=== PATIENT | female | born 1990 | race African-American/Black ===

== ENCOUNTER 2020-05-20 04:03 | Inpatient (IN) | payer MEDICAID, OTHER ==
[2020-05-20] MEDS ORDERED: Methylergonovine 0.2 MG/1 ML Amp IM PRN (05:52)
[2020-05-20] MEDS ORDERED: Misoprostol 200 MCG Tab PO PRN (05:52)
[2020-05-20] MEDS ORDERED: Tranexamic Acid 1,000 MG in Sodium Chloride 0.9% 100 ML IV PRN (05:52)
[2020-05-20] MEDS ORDERED: Water For Irrigation,Sterile 1,000 ML Container IRR PRN (05:52)
[2020-05-20] MEDS ORDERED: Nalbuphine 10 MG/1 ML Vial IVPUSH PRN (05:52)
[2020-05-20] MEDS ORDERED: Carboprost Tromethamine 250 MCG/1 ML Amp IM PRN (05:52)
[2020-05-20] MEDS ORDERED: Butorphanol 1 MG/ML SDV IVPUSH PRN (05:52)
[2020-05-20] MEDS ORDERED: Sodium Chloride 0.9% 10 ML SDV IV PRN (05:52)
[2020-05-20] MEDS ORDERED: Lidocaine 1% 50 ML MDV INJECT PRN (05:52)
[2020-05-20] MEDS ORDERED: Sodium Chloride 0.9% 10 ML Syringe FLUSH PRN (05:52)
[2020-05-20] MEDS ORDERED: Sodium Chloride 0.9% 2.5 ML Syringe FLUSH PRN (05:52)
[2020-05-20] MEDS ORDERED: Oxytocin/0.9 % Sodium Chloride 30 UNIT/500 ML BAG IV SCH ×2 (06:00→13:30)
--- NOTE | 2020-05-20 11:44 | PCM.LDHP ---
L&D History of Present Illness - General Date of Service: 05/20/20 Admit Problem/Dx: Patient Status Order with Admit Dx/Problem 05/20/20 04:44 Patient Status [ADT] Routine 05/20/20 05:55 Patient Status [ADT] Routine Admission Diagnosis/Problem Admission Diagnosis/Problem 40 weeks gestation of Source of Information: Patient History Limitations: Reports: No Limitations - History of Present Illness Improves with: Reports: None Worsens with: Reports: None Associated Symptoms: Reports: N - Related Data Allergies/Adverse Reactions: Allergies Allergy/AdvReac Type Severity Reaction Status Date / Time No Known Allergies Allergy Verified 05/20/20 07:42 Past Medical History HEENT History: Reports: None Cardiovascular History: Reports: None Respiratory History: Reports: None Gastrointestinal History: Reports: GERD Genitourinary History: Reports: None [employer]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 Musculoskeletal History: Reports: None Neurological History: Reports: None Psychiatric History: Reports: None Endocrine/Metabolic History: Reports: None Hematologic History: Reports: None Immunologic History: Reports: None Oncologic (Cancer) History: Reports: None - Past Surgical History Head Surgeries/Procedures: Reports: None HEENT Surgical History: Reports: None Cardiovascular Surgical History: Reports: None Respiratory Surgical History: Reports: None GI Surgical History: Reports: None Endocrine Surgical History: Reports: None Neurological Surgical History: Reports: None Musculoskeletal Surgical History: Reports: None Dermatological Surgical History: Reports: None Social & Family History - Family History Family Medical History: Noncontributory - Tobacco Use Smoking Status *Q: Never Smoker Second Hand Smoke Exposure: No - Recreational Drug Use Recreational Drug Use: No H&P Review of Systems - Review of Systems: Review Of Systems: See Below General: Reports: No Symptoms HEENT: Reports: No Symptoms Pulmonary: Reports: No Symptoms Cardiovascular: Reports: No Symptoms Gastrointestinal: Reports: No Symptoms Genitourinary: Reports: No Symptoms Musculoskeletal: Reports: No Symptoms Skin: Reports: No Symptoms Psychiatric: Reports: No Symptoms Neurological: Reports: No Symptoms Hematologic/Lymphatic: Reports: No Symptoms Immunologic: Reports: No Symptoms L&D Exam - Exam Exam: See Below - Vital Signs Weight: 78.018 kg - OB Specific Contraction Intensity: Mild to Moderate - Hurt Score Hurt Score Cervix Position: Midposition Hurt Score Consistency: Soft Hurt Score Effacement: >80% Hurt Score Dilation: 1-2 cm - Exam General: Alert, Oriented HEENT: PERRLA, Conjunctiva Clear, EACs Clear, EOMI, Hearing Intact, Mucosa Moist & [place], Nares Patent, Normal Nasal Septum, Posterior Pharynx Clear, TMs Clear Neck: Supple, Trachea Midline Lungs: Clear to Auscultation, Normal Respiratory Effort Cardiovascular: Regular Rate, Regular Rhythm GI/Abdominal Exam: Normal Bowel Sounds, Soft, Non-Tender, No Organomegaly, No Distention, No Abnormal Bruit, No Mass, Pelvis Stable Rectal Exam: Normal Exam, Normal Rectal Tone Genitourinary: Normal external exam, Normal bimanual exam, Normal speculum exam Back Exam: Normal Inspection, Full Range of Motion Extremities: Normal Inspection, Normal Range of Motion, Non-Tender, No Pedal Edema, Normal Capillary Refill Skin: Warm, Dry, Intact Neurological: Cranial Nerves Intact, Reflexes Equal Bilateral Psychiatric: Alert, Normal Affect, Normal Mood - Patient Data Lab Results Last 24 hrs: Laboratory Results - last 24 hr 05/20/20 05/20/20 05/20/20 Range/Units 04:23 04:30 06:40 WBC 9.36 (4.0-11.0) K/uL RBC 3.92 L (4.30-5.90) M/uL Hgb 12.9 (12.0-16.0) g/dL Hct 38.7 (36.0-46.0) % MCV 98.7 H (80.0-98.0) fL MCH 32.9 H (27.0-32.0) pg MCHC 33.3 (31.0-37.0) g/dL RDW Std Deviation 48.3 (28.0-62.0) fl RDW Coeff of Nile 14 (11.0-15.0) % Plt Count 169 (150-400) K/uL MPV 10.80 (7.40-12.00) fL Nucleated RBC % 0.0 /100WBC Nucleated RBCs # 0 K/uL Membrane Rupture POSITIVE SARS-CoV-2 RNA (MARIA C) NEGATIVE (NEGATIVE) Blood Type Antibody Screen 05/20/20 Range/Units 06:40 WBC (4.0-11.0) K/uL RBC (4.30-5.90) M/uL Hgb (12.0-16.0) g/dL Hct (36.0-46.0) % MCV (80.0-98.0) fL MCH (27.0-32.0) pg MCHC (31.0-37.0) g/dL RDW Std Deviation (28.0-62.0) fl RDW Coeff of Nile (11.0-15.0) % Plt Count (150-400) K/uL MPV (7.40-12.00) fL Nucleated RBC % /100WBC Nucleated RBCs # K/uL Membrane Rupture SARS-CoV-2 RNA (MARIA C) (NEGATIVE) Blood Type O POSITIVE Antibody Screen NEGATIVE Result Diagrams: 05/20/20 06:40 Problem List Initiated/Reviewed/Updated: Yes Orders Last 24hrs: Active Orders 24 hr Category Date Time Status Patient Status [ADT] Routine ADT 05/20/20 04:44 Active Patient Status [ADT] Routine ADT 05/20/20 05:55 Active Heart Tones [RC] CONTINUOUS Care 05/20/20 05:55 Active Non Stress Test [RC] PER UNIT ROUTINE Care 05/20/20 04:44 Active Non Stress Test [RC] PER UNIT ROUTINE Care 05/20/20 05:55 Active May Shower [RC] ASDIRECTED Care 05/20/20 05:55 Active Notify Provider [RC] PRN Care 05/20/20 05:55 Active Up ad Mary [RC] ASDIRECTED Care 05/20/20 04:44 Active Up ad Mary [RC] ASDIRECTED Care 05/20/20 05:55 Active Vaginal Exam [RC] Click to Edit Care 05/20/20 04:44 Active Vaginal Exam [RC] PRN Care 05/20/20 05:55 Active Vital Signs [RC] PER UNIT ROUTINE Care 05/20/20 04:44 Active Vital Signs [RC] PER UNIT ROUTINE Care 05/20/20 05:55 Active RPR (SYPHILIS SERO) W/ RFLX [REF] Routine Lab 05/20/20 06:40 Received Butorphanol [Stadol] Med 05/20/20 05:52 Active 1 mg IVPUSH Q1H PRN Carboprost Tromethamine [Hemabate DS] Med 05/20/20 05:52 Active 250 mcg IM ASDIRECTED PRN Lactated Ringers [Ringers, Lactated] 1,000 ml Med 05/20/20 06:00 Active IV ASDIRECTED Lidocaine 1% [Xylocaine 1%] Med 05/20/20 05:52 Active 50 ml INJECT ONETIME PRN Methylergonovine [Methergine] Med 05/20/20 05:52 Active 0.2 mg IM ASDIRECTED PRN Nalbuphine [Nubain] Med 05/20/20 05:52 Active 10 mg IVPUSH Q1H PRN Oxytocin/0.9 % Sodium Chloride [Oxytocin 30 Unit/500 ML Med 05/20/20 06:00 Active -NS] 30 unit in 500 ml IV TITRATE Sodium Chloride 0.9% [Normal Saline] Med 05/20/20 05:52 Active 10 ml IV ASDIRECTED PRN Sodium Chloride 0.9% [Saline Flush] Med 05/20/20 05:52 Active 10 ml FLUSH ASDIRECTED PRN Sodium Chloride 0.9% [Saline Flush] Med 05/20/20 05:52 Active 2.5 ml FLUSH ASDIRECTED PRN Tranexamic Acid [Cyklokapron] 1,000 mg Med 05/20/20 05:52 Active Sodium Chloride 0.9% [Normal Saline] 100 ml IV ONETIME Water For Irrigation,Sterile [Sterile Water for Med 05/20/20 05:52 Active Irrigation] 1,000 ml IRR ASDIRECTED PRN miSOPROStoL [Cytotec] Med 05/20/20 05:52 Active 200 mcg PO ONETIME PRN Scalp Electrode [WOMSER] Per Unit Routine Oth 05/20/20 05:55 Ordered Peripheral IV Insertion Adult [OM.PC] Routine Oth 05/20/20 05:55 Ordered Resuscitation Status Routine Resus Stat 05/20/20 04:44 Ordered Medication Orders Butorphanol Tartrate (Stadol) 1 mg IVPUSH Q1H PRN PRN Reason: Pain Carboprost Tromethamine (Hemabate Ds) 250 mcg IM ASDIRECTED PRN PRN Reason: Post Hemorrhage Lactated Ringer's (Ringers, Lactated) 1,000 mls @ 150 mls/hr IV ASDIRECTED SAQIB Oxytocin/Sodium Chloride (Oxytocin 30 Unit/500 Ml-Ns) 30 unit in 500 mls @ 999 mls/hr IV TITRATE SAQIB Tranexamic Acid 1,000 mg/ (Sodium Chloride) 110 mls @ 660 mls/hr IV ONETIME PRN PRN Reason: Bleeding Lidocaine HCl (Xylocaine 1%) 50 ml INJECT ONETIME PRN PRN Reason: Laceration repair Methylergonovine Maleate (Methergine) 0.2 mg IM ASDIRECTED PRN PRN Reason: Post Hemorrhage Misoprostol (Cytotec) 200 mcg PO ONETIME PRN PRN Reason: Post Hemorrhage Nalbuphine HCl (Nubain) 10 mg IVPUSH Q1H PRN PRN Reason: Pain (severe 7-10) Sodium Chloride (Saline Flush) 10 ml FLUSH ASDIRECTED PRN PRN Reason: Keep Vein Open Sodium Chloride (Saline Flush) 2.5 ml FLUSH ASDIRECTED PRN PRN Reason: Keep Vein Open Sodium Chloride (Normal Saline) 10 ml IV ASDIRECTED PRN PRN Reason: IV Use Sterile Water (Sterile Water For Irrigation) 1,000 ml IRR ASDIRECTED PRN PRN Reason: delivery Assessment/Plan Comment:: IUP 40+2. P0000. wiyh SROM. will start pitocin as needed. Pt may have Epidural when it is appropriate.
[2020-05-20] MEDS ORDERED: Terbutaline 1 MG/ML SDV SUBCUT PRN (13:25)
[2020-05-20] MEDS: Lactated Ringers 1,000 ML IV SCH (13:27)
[2020-05-20] MEDS ORDERED: fentaNYL 100 MCG/2 ML SDV ONE (17:25)
[2020-05-20] MEDS ORDERED: Ropivacaine HCl/PF 100 ML ONE (17:25)
--- NOTE | 2020-05-20 17:49 | PCM.PREANE ---
Preanesthetic Assessment - Anesthesia/Transfusion/Family Hx Anesthesia History: No Prior Anesthesia Family History of Anesthesia Reaction: No - Physical Assessment NPO Status Date: 05/20/20 NPO Status Time: 11:00 Height: 1.7 m Weight: 78.018 kg ASA Class: 2 - Lab Values: Laboratory Last Values WBC 9.36 K/uL (4.0-11.0) 05/20/20 06:40 RBC 3.92 M/uL (4.30-5.90) L 05/20/20 06:40 Hgb 12.9 g/dL (12.0-16.0) 05/20/20 06:40 Hct 38.7 % (36.0-46.0) 05/20/20 06:40 MCV 98.7 fL (80.0-98.0) H 05/20/20 06:40 MCH 32.9 pg (27.0-32.0) H 05/20/20 06:40 MCHC 33.3 g/dL (31.0-37.0) 05/20/20 06:40 RDW Std Deviation 48.3 fl (28.0-62.0) 05/20/20 06:40 RDW Coeff of Nile 14 % (11.0-15.0) 05/20/20 06:40 Plt Count 169 K/uL (150-400) 05/20/20 06:40 MPV 10.80 fL (7.40-12.00) 05/20/20 06:40 Nucleated RBC % 0.0 /100WBC 05/20/20 06:40 Nucleated RBCs # 0 K/uL 05/20/20 06:40 Membrane Rupture POSITIVE 05/20/20 04:23 SARS-CoV-2 RNA (MARIA C) NEGATIVE (NEGATIVE) 05/20/20 04:30 Blood Type O POSITIVE 05/20/20 06:40 Antibody Screen NEGATIVE 05/20/20 06:40 - Allergies Allergies/Adverse Reactions: Allergies Allergy/AdvReac Type Severity Reaction Status Date / Time No Known Allergies Allergy Verified 05/20/20 07:42 - Acknowledgements Anesthesia Type Planned: Epidural Pt an Appropriate Candidate for the Planned Anesthesia: Yes Alternatives and Risks of Anesthesia Discussed w Pt/Guardian: Yes Pt/Guardian Understands and Agrees with Anesthesia Plan: Yes PreAnesthesia Questionnaire HEENT History: Reports: None Cardiovascular History: Reports: None Respiratory History: Reports: None Gastrointestinal History: Reports: GERD Genitourinary History: Reports: None 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 Musculoskeletal History: Reports: None Neurological History: Reports: None Psychiatric History: Reports: None Endocrine/Metabolic History: Reports: None Hematologic History: Reports: None Immunologic History: Reports: None Oncologic (Cancer) History: Reports: None - Past Surgical History Head Surgeries/Procedures: Reports: None HEENT Surgical History: Reports: None Cardiovascular Surgical History: Reports: None Respiratory Surgical History: Reports: None GI Surgical History: Reports: None Endocrine Surgical History: Reports: None Neurological Surgical History: Reports: None Musculoskeletal Surgical History: Reports: None Dermatological Surgical History: Reports: None - SUBSTANCE USE Smoking Status *Q: Never Smoker Tobacco Use Within Last Twelve Months: No Second Hand Smoke Exposure: No Recreational Drug Use History: No - CURRENT (IN HOUSE) MEDS Current Meds: Current Medications Butorphanol Tartrate (Stadol) 1 mg IVPUSH Q1H PRN PRN Reason: Pain Last Admin: 05/20/20 14:18 Dose: 1 mg Documented by: Carboprost Tromethamine (Hemabate Ds) 250 mcg IM ASDIRECTED PRN PRN Reason: Post Hemorrhage Lactated Ringer's (Ringers, Lactated) 1,000 mls @ 150 mls/hr IV ASDIRECTED SAQIB Last Admin: 05/20/20 13:27 Dose: 150 mls/hr Documented by: Oxytocin/Sodium Chloride (Oxytocin 30 Unit/500 Ml-Ns) 30 unit in 500 mls @ 999 mls/hr IV TITRATE SAQIB Tranexamic Acid 1,000 mg/ (Sodium Chloride) 110 mls @ 660 mls/hr IV ONETIME PRN PRN Reason: Bleeding Oxytocin/Sodium Chloride (Oxytocin 30 Unit/500 Ml-Ns) 30 unit in 500 mls @ 2 mls/hr IV TITRATE SAQIB; Protocol Last Titration: 05/20/20 14:19 Dose: 4 munits/min, 4 mls/hr Documented by: Lidocaine HCl (Xylocaine 1%) 50 ml INJECT ONETIME PRN PRN Reason: Laceration repair Methylergonovine Maleate (Methergine) 0.2 mg IM ASDIRECTED PRN PRN Reason: Post Hemorrhage Misoprostol (Cytotec) 200 mcg PO ONETIME PRN PRN Reason: Post Hemorrhage Nalbuphine HCl (Nubain) 10 mg IVPUSH Q1H PRN PRN Reason: Pain (severe 7-10) Sodium Chloride (Saline Flush) 10 ml FLUSH ASDIRECTED PRN PRN Reason: Keep Vein Open Sodium Chloride (Saline Flush) 2.5 ml FLUSH ASDIRECTED PRN PRN Reason: Keep Vein Open Sodium Chloride (Normal Saline) 10 ml IV ASDIRECTED PRN PRN Reason: IV Use Sterile Water (Sterile Water For Irrigation) 1,000 ml IRR ASDIRECTED PRN PRN Reason: delivery Terbutaline Sulfate (Brethine) 0.25 mg SUBCUT ASDIRECTED PRN PRN Reason: Tacysystole Discontinued Medications Fentanyl (Sublimaze) Confirm Administered Dose 100 mcg .ROUTE .STK-MED ONE Stop: 05/20/20 17:26 Ropivacaine (Naropin 0.2%) Confirm Administered Dose 100 mls @ as directed .ROUTE .STK-MED ONE Stop: 05/20/20 17:26
--- NOTE | 2020-05-20 17:53 | PCM.PRNOTE ---
- Free Text/Narrative Note: Anes NOte Pateint requests epidural for L&D. Level L3-L4 midline appraoch. Sitting position. Chloraprep scrub to lumbar area. Sterile fenestrated drape applied. Epidural space easily achieved single attempt with ease using FUNMILAYO technique. FUNMILAYO at 3 cm. Cath threaded 5 cm with ease. Cath secured at skin at 9 cm using sterile clear adhesve dressing. [id number] 3 cc 1.5% lido with epi negative. 1738 LOad 10 cc 0.2 % ropivicaine with 1 mcg cc fentanyl in slow divded doses. Pump started with 90 c same solution. Rate is 8 cc hr with 6 cc q 20 min prn bolus. Deepak well. Time with patient [id number] Trav Ruffin CRNA
[2020-05-21] MEDS: Ondansetron 4 MG/2 ML SDV IVPUSH PRN ×2 (01:35→12:09)
[2020-05-21] MEDS: Lactated Ringers 1,000 ML IV SCH ×3 (01:36→12:09)
[2020-05-21] MEDS ORDERED: fentaNYL 100 MCG/2 ML SDV ONE (03:15)
[2020-05-21] MEDS ORDERED: Ropivacaine HCl/PF 100 ML ONE (03:15)
--- NOTE | 2020-05-21 03:32 | PCM.PRNOTE ---
- Free Text/Narrative Note: Anes Note Epidural infusion is complete. A new 100 cc bag of 0.2% ropivicaine with 1 mcg cc fentanyl added was placed. A 5 cc bolus was ad ministered, and then infusion was restarted. Rate is 8 cc hr with 6 cc q 20 min prn bolus. Patient reports excellent analgesia. Time with patient [id number] Trav Ruffin CRNA
[2020-05-21] MEDS ORDERED: ceFAZolin 2 GM in Premix Bag 1 BAG IV ONE (04:07)
[2020-05-21] MEDS ORDERED: Acetaminophen 500 MG Tab PO PRN ×2 (04:08→14:28)
[2020-05-21] MEDS ORDERED: Bupivicaine/fentaNYL/NS 250 ML ONE (09:35)
[2020-05-21] MEDS: ceFAZolin 1 GM in Premix Bag 1 BAG IV SCH ×2 (12:12→20:24)
[2020-05-21] MEDS ORDERED: Lanolin 100% Cream 7 GM Tube TOP PRN (14:28)
[2020-05-21] MEDS ORDERED: Benzocaine/Menthol 20%-0.5% Spray 78 GM Cannister TOP PRN (14:28)
[2020-05-21] MEDS ORDERED: oxyCODONE 5 MG Tab PO PRN (14:28)
[2020-05-21] MEDS ORDERED: Ibuprofen 400 MG Tab PO PRN (14:28)
[2020-05-21] MEDS ORDERED: Witch Hazel Medicated Pads 40/Jar TOP PRN (14:28)
[2020-05-21] MEDS ORDERED: Bisacodyl 10 MG Supp RECTAL PRN (14:28)
[2020-05-21] MEDS: Ibuprofen 800 MG Tab PO PRN (18:19)
[2020-05-21] MEDS: Acetaminophen 500 MG Tab PO PRN (18:21)
[2020-05-22] MEDS: Ibuprofen 800 MG Tab PO PRN ×3 (01:25→19:36)
[2020-05-22] MEDS: Acetaminophen 500 MG Tab PO PRN ×2 (01:26→16:02)
--- NOTE | 2020-05-22 06:56 | PCM48HPAN ---
Post Anesthesia Note - EVALUATION WITHIN 48HRS OF ANESTHETIC Vital Signs in Normal Range: Yes Patient Participated in Evaluation: Yes Respiratory Function Stable: Yes Airway Patent: Yes Cardiovascular Function Stable: Yes Hydration Status Stable: Yes Pain Control Satisfactory: Yes Nausea and Vomiting Control Satisfactory: Yes Mental Status Recovered: Yes Vital Signs: Last Vital Signs Temp 36.1 C 05/22/20 05:19 Pulse 69 05/22/20 05:19 Resp 16 05/22/20 05:19 BP 119/69 05/22/20 05:19 Pulse Ox 98 05/22/20 05:19
[2020-05-22] MEDS: Docusate Sodium 100 MG Cap PO PRN ×2 (08:03→19:36)
--- NOTE | 2020-05-22 09:29 | PCM.PNPP ---
- General Info Date of Service: 05/22/20 Functional Status: Reports: Pain Controlled - Review of Systems General: Reports: No Symptoms HEENT: Reports: No Symptoms Pulmonary: Reports: No Symptoms Cardiovascular: Reports: No Symptoms Gastrointestinal: Reports: No Symptoms Genitourinary: Reports: No Symptoms Musculoskeletal: Reports: No Symptoms Skin: Reports: No Symptoms Neurological: Reports: No Symptoms Psychiatric: Reports: No Symptoms - General Info Date of Service: 05/22/20 - Patient Data Vital Signs - Most Recent: Last Vital Signs Temp 36.4 C 05/22/20 07:50 Pulse 86 05/22/20 07:50 Resp 16 05/22/20 07:50 BP 119/78 05/22/20 07:50 Pulse Ox 99 05/22/20 07:50 Weight - Most Recent: 78.925 kg Lab Results - Last 24 Hours: Laboratory Results - last 24 hr 05/22/20 Range/Units 05:55 Hgb 10.4 L (12.0-16.0) g/dL Hct 31.4 L (36.0-46.0) % Med Orders - Current: Current Medications Acetaminophen (Tylenol Extra Strength) 500 mg PO Q4H PRN PRN Reason: Pain Acetaminophen (Tylenol Extra Strength) 1,000 mg PO Q4H PRN PRN Reason: Pain Last Admin: 05/22/20 01:26 Dose: 1,000 mg Documented by: Benzocaine/Menthol (Dermoplast Pain Relief 20%-0.5% Palms) 0 gm TOP ASDIRECTED PRN PRN Reason: Perineal Comfort Measure Last Admin: 05/21/20 17:12 Dose: 1 can Documented by: Bisacodyl (Dulcolax) 10 mg RECTAL ONETIME PRN PRN Reason: Constipation Butorphanol Tartrate (Stadol) 1 mg IVPUSH Q1H PRN PRN Reason: Pain Last Admin: 05/20/20 14:18 Dose: 1 mg Documented by: Carboprost Tromethamine (Hemabate Ds) 250 mcg IM ASDIRECTED PRN PRN Reason: Post Hemorrhage Docusate Sodium (Colace) 100 mg PO BID PRN PRN Reason: Constipation Last Admin: 05/22/20 08:03 Dose: 100 mg Documented by: Emollient Ointment (Lansinoh Hpa) 0 gm TOP ASDIRECTED PRN PRN Reason: Sore Nipples Lactated Ringer's (Ringers, Lactated) 1,000 mls @ 150 mls/hr IV ASDIRECTED SAQIB Last Admin: 05/21/20 12:09 Dose: 150 mls/hr Documented by: Oxytocin/Sodium Chloride (Oxytocin 30 Unit/500 Ml-Ns) 30 unit in 500 mls @ 999 mls/hr IV TITRATE SAQIB Last Admin: 05/21/20 14:17 Dose: 999 mls/hr Documented by: Tranexamic Acid 1,000 mg/ (Sodium Chloride) 110 mls @ 660 mls/hr IV ONETIME PRN PRN Reason: Bleeding Oxytocin/Sodium Chloride (Oxytocin 30 Unit/500 Ml-Ns) 30 unit in 500 mls @ 2 mls/hr IV TITRATE [facility]; Protocol Last Titration: 05/21/20 02:46 Dose: 18 munits/min, 18 mls/hr Documented by: Ibuprofen (Motrin) 400 mg PO Q4H PRN PRN Reason: Pain Ibuprofen (Motrin) 800 mg PO Q6H PRN PRN Reason: Pain Last Admin: 05/22/20 08:03 Dose: 800 mg Documented by: Lidocaine HCl (Xylocaine 1%) 50 ml INJECT ONETIME PRN PRN Reason: Laceration repair Methylergonovine Maleate (Methergine) 0.2 mg IM ASDIRECTED PRN PRN Reason: Post Hemorrhage Misoprostol (Cytotec) 200 mcg PO ONETIME PRN PRN Reason: Post Hemorrhage Nalbuphine HCl (Nubain) 10 mg IVPUSH Q1H PRN PRN Reason: Pain (severe 7-10) Ondansetron HCl (Zofran) 4 mg IVPUSH Q6H PRN PRN Reason: Nausea/Vomiting Last Admin: 05/21/20 12:09 Dose: 4 mg Documented by: Oxycodone HCl (Oxycodone) 5 mg PO Q2H PRN PRN Reason: Pain Sodium Chloride (Saline Flush) 10 ml FLUSH ASDIRECTED PRN PRN Reason: Keep Vein Open Sodium Chloride (Saline Flush) 2.5 ml FLUSH ASDIRECTED PRN PRN Reason: Keep Vein Open Sodium Chloride (Normal Saline) 10 ml IV ASDIRECTED PRN PRN Reason: IV Use Sterile Water (Sterile Water For Irrigation) 1,000 ml IRR ASDIRECTED PRN PRN Reason: delivery Terbutaline Sulfate (Brethine) 0.25 mg SUBCUT ASDIRECTED PRN PRN Reason: Tacysystole Witholger Ladan (Tucks) 1 pad TOP ASDIRECTED PRN PRN Reason: comfort care Last Admin: 05/21/20 17:13 Dose: 1 tub Documented by: Discontinued Medications Acetaminophen (Tylenol Extra Strength) 1,000 mg PO Q4H PRN PRN Reason: Fever Last Admin: 05/21/20 05:24 Dose: 1,000 mg Documented by: Fentanyl (Sublimaze) Confirm Administered Dose 100 mcg .ROUTE .STK-MED ONE Stop: 05/20/20 17:26 Last Admin: 05/21/20 09:19 Dose: Not Given Documented by: Fentanyl (Sublimaze) Confirm Administered Dose 100 mcg .ROUTE .STK-MED ONE Stop: 05/21/20 03:16 Last Admin: 05/21/20 09:20 Dose: Not Given Documented by: Ropivacaine (Naropin 0.2%) Confirm Administered Dose 100 mls @ as directed .ROUTE .STK-MED ONE Stop: 05/20/20 17:26 Last Admin: 05/21/20 09:19 Dose: Not Given Documented by: Ropivacaine (Naropin 0.2%) Confirm Administered Dose 100 mls @ as directed .ROUTE .STK-MED ONE Stop: 05/21/20 03:16 Last Admin: 05/21/20 09:20 Dose: Not Given Documented by: Cefazolin Sodium/Dextrose 2 gm (/ Premix) 50 mls @ 100 mls/hr IV ONETIME ONE Stop: 05/21/20 04:36 Last Admin: 05/21/20 04:20 Dose: 100 mls/hr Documented by: Fentanyl/Bupivacaine HCl (Fentanyl/Bupivacaine/Ns 2 Mcg-0.125% 250 Ml) Confirm Administered Dose 250 mls @ as directed .ROUTE .STK-MED ONE Stop: 05/21/20 09:36 Last Admin: 05/21/20 10:05 Dose: Not Given Documented by: Cefazolin Sodium/Dextrose 1 gm (/ Premix) 50 mls @ 100 mls/hr IV Q8H SAQIB Stop: 05/21/20 20:59 Last Admin: 05/21/20 20:24 Dose: 100 mls/hr Documented by: - Interaction Disposition, : in Room with Family Infant Interaction: Holding Infant Infant Feeding: Attempted ; Nursed Fair/Poor Support Person: - Recovery Exam Fundal Tone: Firm Fundal Level: 1 Fingerbreadths Below Umbilicus Fundal Placement: Midline Lochia Amount: Scant, Small Lochia Color: Rubra/Red Perineum Description: Intact, Minimal Bruising/Swelling Episiotomy/Laceration: None Bladder Status: Voiding - Exam General: Alert, Oriented HEENT: Pupils Equal Neck: Supple Lungs: Clear to Auscultation, Normal Respiratory Effort Cardiovascular: Regular Rate, Regular Rhythm GI/Abdominal Exam: Normal Bowel Sounds, Soft, Non-Tender, No Organomegaly, No Distention, No Abnormal Bruit, No Mass, Pelvis Stable Extremities: Normal Inspection, Normal Range of Motion, Non-Tender, No Pedal Edema, Normal Capillary Refill Skin: Warm, Dry, Intact Wound/Incisions: Healing Well Neurological: No New Focal Deficit Psy/Mental Status: Alert, Normal Affect, Normal Mood - Problem List Review Problem List Initiated/Reviewed/Updated: Yes - My Orders Last 24 Hours: My Active Orders 05/21/20 14:28 Patient Status [ADT] Routine May Shower [RC] ASDIRECTED Up ad Mary [RC] ASDIRECTED Vital Signs [RC] PER UNIT ROUTINE Acetaminophen [Tylenol Extra Strength] 1,000 mg PO Q4H PRN Acetaminophen [Tylenol Extra Strength] 500 mg PO Q4H PRN Benzocaine/Menthol [Dermoplast Pain Relief 20%-0.5% Palms] 0 gm TOP ASDIRECTED PRN Docusate Sodium [Colace] 100 mg PO BID PRN Ibuprofen [Motrin] 400 mg PO Q4H PRN Ibuprofen [Motrin] 800 mg PO Q6H PRN Lanolin [Lansinoh HPA] See Dose Instructions TOP ASDIRECTED PRN bisacodyL [Dulcolax] 10 mg RECTAL ONETIME PRN oxyCODONE 5 mg PO Q2H PRN witch Ladan [Tucks] 1 pad TOP ASDIRECTED PRN Assess Lochia [WOMSER] Per Unit Routine Assess Uterine Involution [WOMSER] Per Unit Routine Peripheral IV Discontinue [OM.PC] Routine 05/22/20 Breakfast Regular Diet [DIET] - Assessment Assessment:: Status post normal spontaneous vaginal delivery she is doing well she is afebrile she would be discharged in a.m. - Plan Plan:: IUP 40+2. P0000. wiyh SROM. will start pitocin as needed. Pt may have Epidural when it is appropriate.
--- NOTE | 2020-05-22 12:01 | OR ---
SURGEON: Leandro Maki MD DATE OF PROCEDURE: 05/21/2020 This patient is a 29-year-old patient, primigravida. 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 She had no complication or issue. Her GBS status is negative. She is admitted with spontaneous rupture of the membrane that was confirmed. At the time of admission, she was 1 cm, 80%, vertex, and -3. The patient is admitted and started for induction with Cytotec and Pitocin. The patient progressed rather slowly. When she became 4 to 5 cm, she had epidural anesthesia for labor analgesia and then she was started on Pitocin. She progressed rather slowly and when she was 24 hours ruptured, she was started on antibiotic, Ancef 2 g IV, and she spiked a fever. She was given Tylenol for that fever. heart rate was category 1 through the entire process of labor. Finally, the patient became complete complete and after pushing for an hour and a half, she was able to accomplish normal spontaneous vaginal delivery. Terminal meconium is noted and one nuchal cord was noted. The fetus once delivered had a heart rate above 100 and was moving, but required resuscitation. The score is not available at the time of the dictation of this note. The placenta was delivered spontaneous, complete, and intact without any problem. There was no perineal laceration or labial laceration. Estimated blood loss was 350 to 400 mL. heart rate was category 1 through the entire process of labor. There was no complication in the delivery and the labor process of this patient. FREDDY / CARLINE /[id number]
[2020-05-23] MEDS: Ibuprofen 800 MG Tab PO PRN (04:44)
[2020-05-23] MEDS: Docusate Sodium 100 MG Cap PO PRN (08:21)
[2020-05-23] MEDS: Acetaminophen 500 MG Tab PO PRN (08:22)
[2020-05-23] MEDS ORDERED: Ondansetron 4 MG Tab PO ONE (09:55)
--- NOTE | 2020-05-23 10:50 | PCM.DCSUM1 ---
Discharge Summary - Hospital Course Diagnosis: Stroke: No - Discharge Data Discharge Date: 05/23/20 Discharge Disposition: Home, Self-Care 01 Condition: Good - Referral to Home Health Primary Care Physician: PCP None - Patient Instructions Diet: Usual Diet as Tolerated Activity: As Tolerated Driving: Do Not Drive - Discharge Plan Referrals: [facility] [Outside] Leandro Maki MD [Physician] - 07/03/20 2:45 pm - Discharge Summary/Plan Comment DC Time >30 min.: Yes - General Info Date of Service: 05/23/20 Functional Status: Reports: Pain Controlled - Review of Systems General: Reports: No Symptoms HEENT: Reports: No Symptoms Pulmonary: Reports: No Symptoms Cardiovascular: Reports: No Symptoms Gastrointestinal: Reports: No Symptoms Genitourinary: Reports: No Symptoms Musculoskeletal: Reports: No Symptoms Skin: Reports: No Symptoms Neurological: Reports: No Symptoms Psychiatric: Reports: No Symptoms - Patient Data Vitals - Most Recent: Last Vital Signs Temp 37.1 C 05/23/20 07:35 Pulse 72 05/23/20 07:35 Resp 18 05/23/20 07:35 BP 130/84 05/23/20 07:35 Pulse Ox 99 05/23/20 07:35 Weight - Most Recent: 78.925 kg Med Orders - Current: Current Medications Acetaminophen (Tylenol Extra Strength) 500 mg PO Q4H PRN PRN Reason: Pain Acetaminophen (Tylenol Extra Strength) 1,000 mg PO Q4H PRN PRN Reason: Pain Last Admin: 05/23/20 08:22 Dose: 1,000 mg Documented by: Benzocaine/Menthol (Dermoplast Pain Relief 20%-0.5% [place]) 0 gm TOP ASDIRECTED PRN PRN Reason: Perineal Comfort Measure Last Admin: 05/21/20 17:12 Dose: 1 can Documented by: Bisacodyl (Dulcolax) 10 mg RECTAL ONETIME PRN PRN Reason: Constipation Butorphanol Tartrate (Stadol) 1 mg IVPUSH Q1H PRN PRN Reason: Pain Last Admin: 05/20/20 14:18 Dose: 1 mg Documented by: Carboprost Tromethamine (Hemabate Ds) 250 mcg IM ASDIRECTED PRN PRN Reason: Post Hemorrhage Docusate Sodium (Colace) 100 mg PO BID PRN PRN Reason: Constipation Last Admin: 05/23/20 08:21 Dose: 100 mg Documented by: Emollient Ointment (Lansinoh Hpa) 0 gm TOP ASDIRECTED PRN PRN Reason: Sore Nipples Lactated Ringer's (Ringers, Lactated) 1,000 mls @ 150 mls/hr IV ASDIRECTED SAQIB Last Admin: 05/21/20 12:09 Dose: 150 mls/hr Documented by: Oxytocin/Sodium Chloride (Oxytocin 30 Unit/500 Ml-Ns) 30 unit in 500 mls @ 999 mls/hr IV TITRATE SAQIB Last Admin: 05/21/20 14:17 Dose: 999 mls/hr Documented by: Tranexamic Acid 1,000 mg/ (Sodium Chloride) 110 mls @ 660 mls/hr IV ONETIME PRN PRN Reason: Bleeding Oxytocin/Sodium Chloride (Oxytocin 30 Unit/500 Ml-Ns) 30 unit in 500 mls @ 2 mls/hr IV TITRATE [facility]; Protocol Last Titration: 05/21/20 02:46 Dose: 18 munits/min, 18 mls/hr Documented by: Ibuprofen (Motrin) 400 mg PO Q4H PRN PRN Reason: Pain Ibuprofen (Motrin) 800 mg PO Q6H PRN PRN Reason: Pain Last Admin: 05/23/20 04:44 Dose: 800 mg Documented by: Lidocaine HCl (Xylocaine 1%) 50 ml INJECT ONETIME PRN PRN Reason: Laceration repair Methylergonovine Maleate (Methergine) 0.2 mg IM ASDIRECTED PRN PRN Reason: Post Hemorrhage Misoprostol (Cytotec) 200 mcg PO ONETIME PRN PRN Reason: Post Hemorrhage Nalbuphine HCl (Nubain) 10 mg IVPUSH Q1H PRN PRN Reason: Pain (severe 7-10) Ondansetron HCl (Zofran) 4 mg IVPUSH Q6H PRN PRN Reason: Nausea/Vomiting Last Admin: 05/21/20 12:09 Dose: 4 mg Documented by: Oxycodone HCl (Oxycodone) 5 mg PO Q2H PRN PRN Reason: Pain Sodium Chloride (Saline Flush) 10 ml FLUSH ASDIRECTED PRN PRN Reason: Keep Vein Open Sodium Chloride (Saline Flush) 2.5 ml FLUSH ASDIRECTED PRN PRN Reason: Keep Vein Open Sodium Chloride (Normal Saline) 10 ml IV ASDIRECTED PRN PRN Reason: IV Use Sterile Water (Sterile Water For Irrigation) 1,000 ml IRR ASDIRECTED PRN PRN Reason: delivery Terbutaline Sulfate (Brethine) 0.25 mg SUBCUT ASDIRECTED PRN PRN Reason: Tacysystole Witch Ladan (Tucks) 1 pad TOP ASDIRECTED PRN PRN Reason: comfort care Last Admin: 05/21/20 17:13 Dose: 1 tub Documented by: Discontinued Medications Acetaminophen (Tylenol Extra Strength) 1,000 mg PO Q4H PRN PRN Reason: Fever Last Admin: 05/21/20 05:24 Dose: 1,000 mg Documented by: Fentanyl (Sublimaze) Confirm Administered Dose 100 mcg .ROUTE .STK-MED ONE Stop: 05/20/20 17:26 Last Admin: 05/21/20 09:19 Dose: Not Given Documented by: Fentanyl (Sublimaze) Confirm Administered Dose 100 mcg .ROUTE .STK-MED ONE Stop: 05/21/20 03:16 Last Admin: 05/21/20 09:20 Dose: Not Given Documented by: Ropivacaine (Naropin 0.2%) Confirm Administered Dose 100 mls @ as directed .ROUTE .STK-MED ONE Stop: 05/20/20 17:26 Last Admin: 05/21/20 09:19 Dose: Not Given Documented by: Ropivacaine (Naropin 0.2%) Confirm Administered Dose 100 mls @ as directed .ROUTE .STK-MED ONE Stop: 05/21/20 03:16 Last Admin: 05/21/20 09:20 Dose: Not Given Documented by: Cefazolin Sodium/Dextrose 2 gm (/ Premix) 50 mls @ 100 mls/hr IV ONETIME ONE Stop: 05/21/20 04:36 Last Admin: 05/21/20 04:20 Dose: 100 mls/hr Documented by: Fentanyl/Bupivacaine HCl (Fentanyl/Bupivacaine/Ns 2 Mcg-0.125% 250 Ml) Confirm Administered Dose 250 mls @ as directed .ROUTE .STK-MED ONE Stop: 05/21/20 09:36 Last Admin: 05/21/20 10:05 Dose: Not Given Documented by: Cefazolin Sodium/Dextrose 1 gm (/ Premix) 50 mls @ 100 mls/hr IV Q8H [facility] Stop: 05/21/20 20:59 Last Admin: 05/21/20 20:24 Dose: 100 mls/hr Documented by: Ondansetron HCl (Zofran) 4 mg PO ONETIME ONE Stop: 05/23/20 09:56 - Exam General: Reports: Alert, Oriented HEENT: Reports: Pupils Equal, Pupils Reactive, EOMI, Mucous Membr. Moist/[place] Neck: Reports: Supple Lungs: Reports: Clear to Auscultation, Normal Respiratory Effort Cardiovascular: Reports: Regular Rate, Regular Rhythm GI/Abdominal Exam: Normal Bowel Sounds, Soft, Non-Tender, No Organomegaly, No Distention, No Abnormal Bruit, No Mass, Pelvis Stable (Female) Exam: Normal External Exam, Normal Speculum Exam, Normal Bimanual Exam Rectal (Female) Exam: Normal Exam, Normal Rectal Tone Back Exam: Reports: Normal Inspection, Full Range of Motion Extremities: Normal Inspection, Normal Range of Motion, Non-Tender, No Pedal Edema, Normal Capillary Refill Skin: Reports: Warm, Dry, Intact Wound/Incisions: Reports: Healing Well Neurological: Reports: No New Focal Deficit Psy/Mental Status: Reports: Alert, Normal Affect, Normal Mood
== END 2020-05-23 18:35 | disposition home or self-care (01) | DRG 807 ==
LOC: MW.OB 04:03 → MW.OBCHECK 04:03 → MW.OB 04:04 → MW.OBCHECK 05:55 → OBSVTOIN 05-21 14:14 → MW.OB 05-21 17:44
PROVIDERS: ADMIT Obstetrics & Gynecology; ATTEND Obstetrics & Gynecology
PROC: 10E0XZZ Delivery of Products of Conception, External Approach (ICD-10-PCS; principal; 2020-05-21)
PROC: 3E0P7VZ Introduction of Hormone into Female Reproductive, Via Natural or Artificial Opening (ICD-10-PCS; 2020-05-21)
PROC: 10907ZC Drainage of Amniotic Fluid, Therapeutic from Products of Conception, Via Natural or Artificial Opening (ICD-10-PCS; 2020-05-21)
PROC: 3E0R3BZ Introduction of Anesthetic Agent into Spinal Canal, Percutaneous Approach (ICD-10-PCS; 2020-05-21)
PROC: 00HU33Z Insertion of Infusion Device into Spinal Canal, Percutaneous Approach (ICD-10-PCS; 2020-05-21)
DX: O48.0 Post-term pregnancy (principal); Z37.0 Single live birth; O77.0 Labor and delivery complicated by meconium in amniotic fluid; O69.81X0 Labor and delivery complicated by cord around neck, without compression, not applicable or unspecified; Z3A.40 40 weeks gestation of pregnancy; Z20.828 Contact with and (suspected) exposure to other viral communicable diseases
CPT/HCPCS: 01967; 36415; 59025; 59409; 84112; 85014; 85018; 85027; 86592; 86850; 86900; 86901; A9270-GY; J0595; J0690; J2405; J2590; J2795; J3010; J7120; U0002

== ENCOUNTER 2022-04-21 15:29 | Emergency (ER) | payer MEDICAID, SELFPAY ==
[2022-04-21 16:37] LABS: CARBON DIOXIDE,CO2 28.1 mmol/L (21.0-32.0); POTASSIUM,K 3.9 mmol/L (3.5-5.1)
== END 2022-04-21 19:10 | disposition home or self-care (01) ==
LOC: MW.ED 15:29
DX: R55 Syncope and collapse (principal); R07.9 Chest pain, unspecified; R10.9 Unspecified abdominal pain
CPT/HCPCS: 36415; 71045; 71045-26; 80053; 81003; 81025; 83735; 84484; 85025; 85610; 93005; 93010; 99284; 99285

== ENCOUNTER 2022-10-01 20:16 | Emergency (ER) | payer SELFPAY ==
[2022-10-01] MEDS ORDERED: Sodium Chloride 0.9% 1,000 ML IV ONE (20:50)
[2022-10-01] MEDS ORDERED: Ondansetron 4 MG/2 ML SDV IVPUSH ONE (21:33)
[2022-10-01 22:08] LABS: CARBON DIOXIDE,CO2 26.5 mmol/L (21.0-32.0); POTASSIUM,K 3.7 mmol/L (3.5-5.1)
== END 2022-10-01 22:53 | disposition home or self-care (01) ==
LOC: MW.ED 20:16
DX: O21.9 Vomiting of pregnancy, unspecified (principal); T44.7X5A Adverse effect of beta-adrenoreceptor antagonists, initial encounter; Z3A.10 10 weeks gestation of pregnancy
CPT/HCPCS: 36415; 76801; 80053; 81003; 84702; 85025; 86900; 86901; 93005; 96361; 96374; 99284; J2405; J7030

== ENCOUNTER 2023-04-20 05:29 | Inpatient (IN) | payer SELFPAY ==
[2023-04-20] MEDS ORDERED: Water For Irrigation,Sterile 1,000 ML Container IRR PRN (06:09)
[2023-04-20] MEDS ORDERED: Carboprost Tromethamine 250 MCG/1 mL Vial IM PRN (06:09)
[2023-04-20] MEDS ORDERED: Misoprostol 200 MCG Tab PO PRN (06:09)
[2023-04-20] MEDS ORDERED: Methylergonovine 0.2 MG/1 ML Amp IM PRN (06:09)
[2023-04-20] MEDS ORDERED: Tranexamic Acid IN NACL,ISO-OS 1,000 MG in Premix Bag 1 BAG IV PRN ×2 (06:09)
[2023-04-20] MEDS ORDERED: Lidocaine 1% 50 ML MDV INJECT PRN (06:09)
[2023-04-20] MEDS ORDERED: Sodium Chloride 0.9% 10 ML Syringe FLUSH PRN (06:09)
[2023-04-20] MEDS ORDERED: Sodium Chloride 0.9% 20 ML SDV IV PRN (06:09)
[2023-04-20] MEDS ORDERED: Sodium Chloride 0.9% 2.5 ML Syringe FLUSH PRN (06:09)
[2023-04-20] MEDS ORDERED: Oxytocin/0.9 % Sodium Chloride 30 UNIT/500 ML BAG IV SCH ×2 (06:15→06:30)
[2023-04-20] MEDS ORDERED: Ampicillin 2 GM in Sodium Chloride 0.9% 100 ML IV ONE (06:15)
[2023-04-20] MEDS ORDERED: Misoprostol 25 MCG (1/4 of 100 MCG) Tab VAG PRN ×2 (06:16)
[2023-04-20] MEDS ORDERED: Terbutaline 1 MG/ML SDV SUBCUT PRN (06:16)
[2023-04-20] MEDS ORDERED: Misoprostol 25 MCG (1/4 of 100 MCG) Tab PO ONE (06:23)
[2023-04-20] MEDS: Lactated Ringers 1,000 ML IV SCH ×3 (06:44→16:51)
[2023-04-20 06:52] LABS: HEMATOCRIT 38.6 % (36.0-46.0); HEMOGLOBIN 12.7 g/dL (12.0-16.0); MEAN CORPUSCULAR HEMOGLOBIN 30.9 pg (27.0-32.0); MEAN CORPUSCULAR HGB CONC 32.9 g/dL (31.0-37.0); MEAN CORPUSCULAR VOLUME 93.9 fL (80.0-98.0); MEAN PLATELET VOLUME 10.8 fL (7.40-12.00); RED BLOOD CELL COUNT 4.11 M/uL (4.30-5.90); WHITE BLOOD CELL COUNT,WBC 7.37 K/uL (4.0-11.0)
[2023-04-20] MEDS ORDERED: Phenylephrine HCl 0.5 MG/5 ML AMP IVPUSH PRN (10:27)
[2023-04-20] MEDS ORDERED: ePHEDrine 50 MG/ML SDV IVPUSH PRN ×2 (10:27)
[2023-04-20] MEDS ORDERED: Ropivacaine HCl/PF 400 MG in Premix Bag 1 BAG EPIDUR SCH (10:30)
[2023-04-20] MEDS ORDERED: Simethicone 80 MG Tab.Chew PO PRN (10:37)
[2023-04-20] MEDS ORDERED: Docusate Sodium 100 MG Cap PO PRN (10:37)
[2023-04-20] MEDS ORDERED: Bisacodyl 10 MG Supp RECTAL PRN (10:37)
[2023-04-20] MEDS ORDERED: Lanolin 100% Cream 7 GM Tube TOP PRN (10:37)
[2023-04-20] MEDS ORDERED: Witch Hazel Medicated Pads 40/Jar TOP PRN (10:37)
[2023-04-20] MEDS ORDERED: Ibuprofen 400 MG Tab PO PRN (10:37)
[2023-04-20] MEDS ORDERED: Benzocaine/Menthol 20%-0.5% Spray 78 GM Cannister TOP PRN (10:37)
[2023-04-20] MEDS ORDERED: Acetaminophen 500 MG Tab PO PRN (10:37)
[2023-04-20] MEDS: Ampicillin 1 GM in Sodium Chloride 0.9% 50 ML IV SCH ×3 (10:49→18:30)
[2023-04-20 10:54] LABS: A/G RATIO 0.7 (0.9-1.6); ALBUMIN 2.7 g/dL (3.4-5.0); BILIRUBIN TOTAL 0.3 mg/dL (0.2-1.0); CARBON DIOXIDE,CO2 19.5 mmol/L (21.0-32.0); CREATININE 0.7 mg/dL (0.6-1.0); EST CRCL DRUG DOSING (CG) 91.25 mL/min; POTASSIUM,K 3.8 mmol/L (3.5-5.1); PROTEIN TOTAL,TP 6.4 g/dL (6.4-8.2)
[2023-04-20] MEDS: Ondansetron 4 MG/2 ML SDV IVPUSH PRN ×2 (13:38→18:30)
[2023-04-20 14:24] LABS: CREATININE,URINE RAND 28.7 mg/dL; PROTEIN,URINE RANDOM < 6.0 mg/dL (<11.9)
[2023-04-20] MEDS ORDERED: Ondansetron 4 MG/2 ML SDV IVPUSH PRN (18:50)
[2023-04-20] MEDS: Acetaminophen 500 MG Tab PO PRN (22:10)
[2023-04-21] MEDS: Ibuprofen 800 MG Tab PO PRN ×3 (00:28→19:31)
[2023-04-21 05:46] LABS: HEMATOCRIT 36.5 % (36.0-46.0); HEMOGLOBIN 12.2 g/dL (12.0-16.0); MEAN CORPUSCULAR HEMOGLOBIN 31.5 pg (27.0-32.0); MEAN CORPUSCULAR HGB CONC 33.4 g/dL (31.0-37.0); MEAN CORPUSCULAR VOLUME 94.3 fL (80.0-98.0); MEAN PLATELET VOLUME 9.9 fL (7.40-12.00); RED BLOOD CELL COUNT 3.87 M/uL (4.30-5.90); WHITE BLOOD CELL COUNT,WBC 13.85 K/uL (4.0-11.0)
[2023-04-21] MEDS: Cyclobenzaprine 10 MG Tab PO SCH ×3 (05:48→22:15)
[2023-04-21] MEDS: Acetaminophen 500 MG Tab PO PRN (05:49)
[2023-04-22] MEDS: Cyclobenzaprine 10 MG Tab PO SCH (05:48)
[2023-04-22] MEDS: Ibuprofen 800 MG Tab PO PRN (09:34)
== END 2023-04-22 12:30 | disposition home or self-care (01) | DRG 807 ==
LOC: MW.OBCHECK 05:29 → MW.OB 05:30 → MW.OBCHECK 06:10 → MW.OB 06:11 → OBSVTOIN 19:39 → MW.OB 04-21 00:21
PROVIDERS: ADMIT Obstetrics & Gynecology Obstetrics; ATTEND Obstetrics & Gynecology Obstetrics
PROC: 10E0XZZ Delivery of Products of Conception, External Approach (ICD-10-PCS; principal; 2023-04-20)
PROC: 10907ZC Drainage of Amniotic Fluid, Therapeutic from Products of Conception, Via Natural or Artificial Opening (ICD-10-PCS; 2023-04-20)
PROC: 3E0P7VZ Introduction of Hormone into Female Reproductive, Via Natural or Artificial Opening (ICD-10-PCS; 2023-04-20)
PROC: 3E0R3BZ Introduction of Anesthetic Agent into Spinal Canal, Percutaneous Approach (ICD-10-PCS; 2023-04-20)
PROC: 00HU33Z Insertion of Infusion Device into Spinal Canal, Percutaneous Approach (ICD-10-PCS; 2023-04-20)
DX: O10.92 Unspecified pre-existing hypertension complicating childbirth (principal); Z37.0 Single live birth; O99.824 Streptococcus B carrier state complicating childbirth; Z3A.39 39 weeks gestation of pregnancy
CPT/HCPCS: 01967; 36415; 59409; 80053; 82570; 83615; 84156; 85027; 86592; 86850; 86900; 86901; A9270-GY; J0290; J2405; J2590; J3490; J7120

== ENCOUNTER 2023-04-24 07:16 | Emergency (ER) | payer SELFPAY ==
[2023-04-24] MEDS ORDERED: Ketorolac 30 MG/ML SDV IVPUSH ONE (07:46)
[2023-04-24] MEDS ORDERED: Sodium Chloride 0.9% 2.5 ML Syringe FLUSH PRN (07:46)
[2023-04-24] MEDS ORDERED: Sodium Chloride 0.9% 10 ML Syringe FLUSH PRN (07:46)
[2023-04-24 08:12] LABS: BILIRUBIN,URINE NEGATIVE (NEGATIVE); COLOR,URINE YELLOW; GLUCOSE,URINE NEGATIVE (NEGATIVE); KETONES,URINE NEGATIVE (NEGATIVE); LEUKOCYTE ESTERASE,URINE MODERATE (NEGATIVE); NITRITE,URINE NEGATIVE (NEGATIVE); OCCULT BLOOD,URINE LARGE (NEGATIVE); PROTEIN,URINE NEGATIVE (NEGATIVE); UROBILINOGEN,URINE 0.2 EU/dL (<2.0)
[2023-04-24 08:20] LABS: APPEARANCE,URINE HAZY; BACTERIA,URINE FEW (NEGATIVE); EPITHELIAL CELLS,URINE FEW (NONE-FEW)
[2023-04-24 08:27] LABS: BASOPHILS PERCENT AUTO 0.1 % (0.0-1.5); EOSINOPHILS PERCENT AUTO 0.1 % (0.0-7.0); HEMATOCRIT 34.9 % (36.0-46.0); HEMOGLOBIN 11.7 g/dL (12.0-16.0); LYMPHOCYTES ABSOLUTE AUTO 0.9 K/uL (0.6-2.4); LYMPHOCYTES PERCENT AUTO 12.9 % (16.0-40.0); MEAN CORPUSCULAR HEMOGLOBIN 31.6 pg (27.0-32.0); MEAN CORPUSCULAR HGB CONC 33.5 g/dL (31.0-37.0); MEAN CORPUSCULAR VOLUME 94.3 fL (80.0-98.0); MONOCYTES ABSOLUTE AUTO 0.5 K/uL (0.0-0.8); MONOCYTES PERCENT AUTO 7.3 % (0.0-15.0); NEUTROPHILS ABSOLUTE AUTO 5.4 K/uL (1.4-5.7); NEUTROPHILS PERCENT AUTO 79.6 % (48.0-80.0); NRBC ABSOLUTE 0 K/uL; PLATELET COUNT,PLT 194 K/uL (150-400); WHITE BLOOD CELL COUNT,WBC 6.74 K/uL (4.0-11.0)
[2023-04-24 08:47] LABS: INR 0.94 (0.86-1.11); PTT,PARTIAL THROMBOPLSTIN TIME 28.2 SEC (23.9-30.7)
[2023-04-24 08:53] LABS: A/G RATIO 0.6 (0.9-1.6); ALBUMIN 2.2 g/dL (3.4-5.0); BILIRUBIN TOTAL 0.3 mg/dL (0.2-1.0); CALCIUM 8.1 mg/dL (8.5-10.1); CARBON DIOXIDE,CO2 22.8 mmol/L (21.0-32.0); CREATININE 0.8 mg/dL (0.6-1.0); EST CRCL DRUG DOSING (CG) 79.85 mL/min; MAGNESIUM 1.7 mg/dL (1.8-2.4); PHOSPHORUS 2.9 mg/dL (2.6-4.7)
[2023-04-24] MEDS ORDERED: Albumin 25% 12.5 GM/50 ML BAG IV ONE (09:02)
[2023-04-24] MEDS ORDERED: Magnesium Sulfate/Water 2 GM in Premix Bag 1 BAG IV ONE (09:02)
[2023-04-24] MEDS ORDERED: Calcium Gluconate 10% 1 GM/10 ML SDV IV ONE (09:04)
== END 2023-04-24 11:06 | disposition home or self-care (01) ==
LOC: MW.ED 07:16
DX: O86.4 Pyrexia of unknown origin following delivery (principal); O86.12 Endometritis following delivery; O16.5 Unspecified maternal hypertension, complicating the puerperium; O99.285 Endocrine, nutritional and metabolic diseases complicating the puerperium; E83.51 Hypocalcemia; E88.09 Other disorders of plasma-protein metabolism, not elsewhere classified
CPT/HCPCS: 36415; 71045; 76856; 80053; 81001; 83605; 83735; 84100; 84484; 85025; 85610; 85730; 87040; 93005; 96365; 96368; 96375; 99284; J0612; J1885; J3475; J3490; P9047; 93010